=== PATIENT | male | born 1945 | race Caucasian/White ===

== ENCOUNTER 2017-11-06 08:31 | Outpatient (CLI) | payer OTHER | END 2017-11-06 08:40 | disposition home or self-care (01) | LOC: LAB 08:31 | DX: C18.9 Malignant neoplasm of colon, unspecified (principal); N39.0 Urinary tract infection, site not specified ==

== ENCOUNTER 2017-11-06 10:30 | Outpatient (CLI) | payer OTHER | END 2017-11-06 10:44 | disposition home or self-care (01) | LOC: TOM 10:30 | DX: C67.9 Malignant neoplasm of bladder, unspecified (principal) | CPT/HCPCS: 74178; Q9965 ==